=== PATIENT | female | born 1960 | race Caucasian/White ===

== ENCOUNTER 2019-06-07 00:56 | Day surgery (SDC) | payer MEDICARE, OTHER, SELFPAY ==
[2019-05-27 07:54] VITALS: BP 134/79; PULSE 80; RESP 18; TEMP 37.3; O2SAT 98; BMI 26.9
--- NOTE | 2019-06-03 08:06 | P.HP_ITS ---
H&P: HPI History of Present Illness Chief complaint: Uterine Prolapse Narrative: Aarti Jain is a 58 year old female Iris presents for robotic supracervical hysterectomy and bilateral salpingo- oophorectomy. She has known pelvic prolapse complains of pain bulging and discomfort good she will undergo sacral colpopexy with Dr. amezquita as well. She also has stress urinary incontinence. She has had a normal Pap. Risks and benefits reviewed. Review of Systems 2 Review of Systems: All systems reviewed & are unremarkable except as noted in HPI and below Meds Home Medications and Allergies Home Medications Medication Instructions Recorded Confirmed Type atorvastatin 20 mg PO DAILY 05/27/19 05/27/19 History cholecalciferol (vitamin D3) 4,000 unit PO DAILY 05/27/19 05/27/19 History interferon beta-1a (albumin) 44 mcg SUBCUT 3XW 05/27/19 05/27/19 History [Rebif Rebidose] lisinopril 40 mg PO DAILY 05/27/19 05/27/19 History metoprolol succinate 25 mg PO HS 05/27/19 05/27/19 History oxcarbazepine 600 mg PO TID 05/27/19 05/27/19 History oxybutynin chloride 15 mg PO DAILY 05/27/19 05/27/19 History Allergies Allergy/AdvReac Type Severity Reaction Status Date / Time No Known Allergies Allergy Verified 05/27/19 08:03 Exam Const: General: no acute distress Eyes: General: appearance normal, both eyes and all related structures Neck: Neck: supple and no JVD Thyroid: thyroid normal Resp: Effort & Inspection: normal respiratory effort Auscultation: clear to auscultation bilaterally Cardio: Rate: regular rate Rhythm: regular rhythm GI: Inspection: non-distended GI Palp: Yes Soft to palpation, No Tenderness to palpation present (GI) and No Guarding due to palpation present (GI) Auscultation: normal bowel sounds : External Female Exam: normal external appearance Speculum Exam - Vagina: Abnormal introitus ( Uterine prolapse is seen in the second-third degree time there is also a ) Skin: General skin exam: no rashes or lesions noted Extrem: General: normal to inspection and no edema Psych: Mental Status: mental status grossly normal Affect: normal affect Assessment and Plan Additional Plan Impression: Prolapse and stress urinary incontinence Plan: Robotic supracervical hysterectomy. I lateral salpingo-oophorectomy. Under blood will proceed with robotic sacrocolpopexy
[2019-06-07] VITALS (17 sets, daily range): BP systolic 111–159; BP diastolic 59–85; PULSE 66–92; RESP 9–18; TEMP 36.1–36.8; O2SAT 96–100
--- NOTE | 2019-06-07 06:49 | WPDHPUPDATE1 ---
History and Physical Update Update Date/Time: 06/07/19 06:49 History and Physical has been reviewed, including an updated exam of the patient. There are NO changes in the patient's condition. Risks, benefits, and alternatives have been discussed and questions answered. Patient agrees to proceed with procedure.
--- NOTE | 2019-06-07 07:06 | WPDANESEPPF ---
Anes - Initial Pre Proc Eval Procedure: Operation Date: 06/07/19 07:30 Proposed Procedures p Robotic Sacrocolpopexy, Possible Urethral Sling - Alireza May MD s Robotic Assisted Supracervical Hysterectomy, Bilateral Salpingo-Oophorectomy - Ike Araiza MD Date/Time: 06/07/19 07:06 Surgeon: Alireza May MD Pre Op Diagnosis: Uterine Prolapse Patient Data Age: 58 Gender: F Height: 5 ft Weight: 62.1 kg Last Vital Signs Temp 99.2 F 05/27/19 07:54 Pulse 80 05/27/19 07:54 Resp 18 05/27/19 07:54 BP 134/79 05/27/19 07:54 Pulse Ox 98 05/27/19 07:54 Allergies Allergy/AdvReac Type Severity Reaction Status Date / Time No Known Allergies Allergy Verified 06/07/19 06:31 Home Medications Medication Instructions Recorded Confirmed Type atorvastatin 20 mg PO DAILY 05/27/19 06/07/19 History cholecalciferol (vitamin D3) 4,000 unit PO DAILY 05/27/19 06/07/19 History interferon beta-1a (albumin) 44 mcg SUBCUT 3XW 05/27/19 06/07/19 History [Rebif Rebidose] lisinopril 40 mg PO DAILY 05/27/19 06/07/19 History metoprolol succinate 25 mg PO HS 05/27/19 06/07/19 History oxcarbazepine 600 mg PO TID 05/27/19 06/07/19 History oxybutynin chloride 15 mg PO DAILY 05/27/19 06/07/19 History Patient hx anesthesia problems: none Family hx anesthesia problems: none [facility] Past Medical History Medical History (Updated 06/07/19 @ 07:06 by Moody Erickson MD) Hyperlipidemia Hypertension Multiple sclerosis Anes - Eval Final PreProcedure Day of Procedure 06/07/19 07:06 Patient weight: normal Heart: regular rate and rhythm Lungs: clear to auscultation Airway: Mallampati scale class II Neurological: alert and oriented Last oral intake: >/= 8 hours ASA classification: III Emergent: no Anesthetic plan: proceed Anesthesia type and monitoring: general ETT and standard monitoring Informed Consent: The patient's anesthetic plan and its attendant risks and benefits were discussed with the patient/family/POA. Questions were solicited and answers provided to the satisfaction of the patient/family/POA.
[2019-06-07] MEDS: LACTATED RINGERS 1,000 ML 30 ML IV CONT ×2 (07:11→10:03)
--- NOTE | 2019-06-07 07:18 | WPDHPUPDATE1 ---
History and Physical Update Update Date/Time: 06/07/19 07:18 History and Physical has been reviewed, including an updated exam of the patient. There are NO changes in the patient's condition. Risks, benefits, and alternatives have been discussed and questions answered. Patient agrees to proceed with procedure.
[2019-06-07] MEDS: ceFAZolin 2 GM/D5W 50 ML 2 GM/50 ML BAG IVPB (07:34)
[2019-06-07] MEDS: BUPIVACAINE/EPINEPHRINE 0.25% 50 ML VIAL 10 ML INFILTRATE (07:50)
[2019-06-07] MEDS: metroNIDAZOLE 500 MG/ISO 100ML 500 MG/100 ML BAG 100 MG IVPB ×2 (07:51→16:00)
--- NOTE | 2019-06-07 08:28 | P.OP_ITS ---
Procedure Note - Detailed Date of procedure: 06/07/19 Pre-op diagnosis: Uterine Prolapse Surgeon: Ike Araiza MD Postop diagnosis: Uterine prolapse EBL: 5cc Anesthesia: General endotracheal Findings: Prolapsed uterus: Normal appearing adnexa, adhesions from the colon to the right lateral sidewall Complications: None Description of procedure: The patient was prepped and draped in the normal sterile fashion and placed in the dorsal lithotomy position. Under excellent general endotracheal anesthesia weighted speculum placed post formed vagina. The anterior lip of the cervix grasped with a single-tooth tenaculum. The Wright's cannula inserted to the cervix and attached to be used later for uterine manipulation. A 16 [place] catheter was then placed in the bladder and drained of clear urine. I un scrubbed at that point. Dr. May proceeded to place the port and docked the robot. Please see his operative report for details of that. Once the robot was docked attended the console. The left round ligament was grasped, burned, cut anteriorly a bladder flap was formed by sharply disse cting the bladder caudally from the uterus and cervix. This was taken to the opposite round ligament which was clamped, burned, cut. Next the left infundibulopelvic structure was skeletonized to remove the left ovary and tube. This was serially clamped, cut, and burned and brought to the level of the previously cut round ligament. In like fashion the right ovary and tube removed by clamping burning and cutting infundibulopelvic structure on the right. The cardinal and broad ligaments on the left were serially skeletonized clamped, burned, cut and brought down the lateral edge of the uterus until the uterine vessels could be seen. These were individually clamped, burned, and cut in like fashion the cardinal and broad ligaments on the right were serially skeletonized, clamped, burned, cut brought down to the level of of the uterine vessels these were individually clamped, burned, cut. Then the supracervical incision was made. The cervix uterus and to the cervix remained the uterus ovaries and tubes were placed in an Endo-Catch. Blood loss to the point was 5cc Dr. May joined at that point there were no complications up to this point
--- NOTE | 2019-06-07 08:35 | SUR.OPER ---
Y MESH TO FIELD UPSYLON SEE DOCUMENTATION FOR MESH.
--- NOTE | 2019-06-07 09:44 | SUR.OPER ---
ebl 15ml u/a 175 clear yellow u/a
--- NOTE | 2019-06-07 09:45 | PM.PROC ---
Procedure Note - Detailed Date of procedure: 06/07/19 Pre-op diagnosis: Uterine Prolapse Uterine prolapse Post-op diagnosis: same Procedure performed: Robotic assisted laparoscopic sacral colpopexy Cystoscopy Description of procedure: She understood the risks of bleeding, infection, damage to surrounding organs, bowel injury, bowel obstruction, recurrence of prolapse, stress incontinence, mesh related complications including exposure and extrusion, diskitis, postoperative voiding dysfunction including incontinence and retention, hip and leg pain, dyspareunia, and she agrees to proceed. She was correctly identified and informed consent was obtained. She was brought to the operating room. She was given general anesthesia. She was placed in the dorsal lithotomy position. All pressure points were padded. She was given appropriate perioperative antibiotics. Time-out performed. I anesthetized the skin 3 fingerbreadths cephalad to the umbilicus. I incised the skin. I dissected down to locate the fascia. I grasped the fascia with Jamin clamps. I entered the fascia sharply. I placed Vicryl sutures for later fascial closure. I placed a midline trocar. Under direct vision 2 additional trocars were placed on the right and left upper quadrant. She was placed in steep Trendelenburg and the robot was docked. Her show host or hostess performed the portion of the procedure and left the specimen and a sac which was extracted. I then sat at the console. With the Sizer in the vagina I created a plane on the anterior and posterior vaginal wall. This was done for several cm taking great care not to injure the vagina, bladder, or rectum. I introduced the mesh into the abdomen. I sewed the anterior leaflet of mesh on the anterior vaginal wall and posterior leaf of the mesh on the posterior vaginal wall with several [place] sutures taking great care not to go through and through. I then reflected the colon laterally. I opened up the posterior peritoneum over the sacral promontory. I carried this into the cul-de-sac. I kept the ureters lateral. I freed up the edges. I located the anterior longitudinal ligament of the sacrum. I tensioned the mesh appropriately. I did a vaginal exam to ensure prolapse reduction without undue tension. I then sewed the proximal leaflet of mesh onto the ligament with 3 sutures of 2 0 [place]-Tate. Next the mass was meticulously retroperitonealized with a running 2 0 Monocryl suture. I allowed the colon to go back into its normal anatomic location. There is no signs of any impingement or stricturing. The abdomen was exited. Fascia was closed. Skin was closed with Monocryl and glue. I then performed cystoscopy. The bladder is examined. There was no tumors, stones, foreign bodies, surgical artifact. Both ureters were seen to excrete clear yellow urine. There is no surgical artifact in the urethra. Catheter was then replaced. She was awakened and transferred to the PACU in stable condition. Anesthesia: GLMA Surgeon: Alireza May MD Drains: Yes (Bhatti catheter) Packing: Yes Complications: No immediate complications Condition: stable Disposition: PACU
--- NOTE | 2019-06-07 10:51 | SUR.PHASEI ---
[id number]-REPORT FAXED TO FLOOR, ADMITTING NOTIFIED OF OPER ADMIT, NOTIFIED WITH UPDATE VIA WAITING FACTORY MANAGER.
[2019-06-07] MEDS: MORPHINE SULFATE 2 MG/ML INJ IV PUSH (13:02)
[2019-06-07] MEDS: KCL 20 MEQ/D5/0.45% SOD CHL 1,000 ML 100 ML IV CONT (13:03)
--- NOTE | 2019-06-07 13:24 | PC.NURSE ---
1132: Pt. admitted from PACU in hospital bed. Respirations even and unlabored. Oriented to room and call light system. Very pleasant and cooperative. at side. Resting quietly.
--- NOTE | 2019-06-07 14:03 | PHAR ---
The patient's home med of Oxcarbazepine 600mg has been verified. LARGE YELLOW PILL WITH MARKINGS 13 9 G
[2019-06-07] MEDS: METOPROLOL SUCCINATE EXT REL 25 MG TABCR PO (22:03)
[2019-06-08 00:30] VITALS: BP 148/74; PULSE 80; RESP 16; TEMP 36.8; O2SAT 97
[2019-06-08] MEDS: metroNIDAZOLE 500 MG/ISO 100ML 500 MG/100 ML BAG 100 MG IVPB ×2 (00:40→10:09)
[2019-06-08] MEDS: KCL 20 MEQ/D5/0.45% SOD CHL 1,000 ML 100 ML IV CONT (00:49)
[2019-06-08] MEDS: ACETAMINOPHEN 325 MG TABLET 650 MG PO (01:47)
[2019-06-08 05:00] VITALS: BP 165/92; PULSE 100; RESP 18; TEMP 36.9; O2SAT 97
[2019-06-08] MEDS: ONDANSETRON INJ 4 MG/2 ML VIAL IV PUSH (05:25)
--- NOTE | 2019-06-08 06:50 | PM.DS ---
DS: Diagnosis Admitting Diagnosis Admitting Diagnosis: Uterovaginal prolapse, unspecified DS: Summary Time Spent with Patient Time attestation: Total time spent providing and/or coordinating discharge services: Exam Const: General: no acute distress Eyes: General: appearance normal, both eyes and all related structures Neck: Neck: supple and no JVD Thyroid: thyroid normal Resp: Effort & Inspection: normal respiratory effort Auscultation: clear to auscultation bilaterally Cardio: Rate: regular rate Rhythm: regular rhythm GI: Inspection: non-distended GI Palp: Yes Soft to palpation, No Tenderness to palpation present (GI) and No Guarding due to palpation present (GI) Auscultation: normal bowel sounds : General: Yes bladder normal to palpation External Female Exam: normal external appearance Speculum Exam - Vagina: normal vaginal discharge and No vaginal bleeding Speculum Exam - Cervix: nontender Bimanual exam- vagina & uterus: bladder normal to palpation and No Cervical tenderness present OB/external & speculum: No vaginal bleeding Skin: General skin exam: no rashes or lesions noted Extrem: General: normal to inspection and no edema Psych: Mental Status: mental status grossly normal Affect: normal affect DS: Data Data Completed and Pending Pending studies at discharge: Pending at discharge 06/07/19 08:19 Surgical [PTH] Routine Discharge Plan Discharge Attending physician on discharge: Ike Araiza Discharging Clinician: Ike Araiza Patient Disposition: Home, Self-Care Discharge Instructions: No lifting >20lb, exercise for 6 weeks No tub bath or pool for 2 weeks Follow-up/Referrals: Alireza May MD [Physician] - 6 Weeks Ike Araiza MD [Physician] - Discharge Medications: New tramadol 50 mg tablet 50 mg PO Q6H PRN (Reason: pain) Qty: 30 RF: 0 docusate sodium [Colace] 100 mg capsule 100 mg PO BID Qty: 60 RF: 0 Continued oxybutynin chloride 15 mg Tablet Extended Release 24hr 15 mg PO DAILY RF: 0 atorvastatin 20 mg Tablet 20 mg PO DAILY RF: 0 oxcarbazepine 600 mg Tablet 600 mg PO TID RF: 0 metoprolol succinate 25 mg Tablet Extended Release 24 Hr 25 mg PO HS RF: 0 lisinopril 40 mg Tablet 40 mg PO DAILY RF: 0 cholecalciferol (vitamin D3) 2,000 unit Tablet 4,000 unit PO DAILY RF: 0 Rebif Rebidose 44 mcg/0.5 mL Pen Injector 44 mcg SUBCUT 3XW RF: 0 Primary Care Provider: Valorie,Marisabel Miller Attending physician on admission: Alireza May
--- NOTE | 2019-06-08 06:51 | PM.OBPNVD ---
OB - PN: Subj Subjective Date/time seen: 06/08/19 06:51 Patient comments: pain well controlled and other (ms sxs but ok postop) OB - PN A/P Plan day: 1 Plan: routine care, discharge home and follow up 6 weeks (2 weeks) Time Spent With Patient Time: Total time spent is greater than 50% in coordination of care (as documented) at patient's floor/unit and/or counseling patient: Time with patient: less than 15 minutes Review of Systems Review of Systems: All systems reviewed & are unremarkable except as noted in HPI and below Exam Const: General: no acute distress Eyes: General: appearance normal, both eyes and all related structures Neck: Neck: supple and no JVD Thyroid: thyroid normal Resp: Effort & Inspection: normal respiratory effort Auscultation: clear to auscultation bilaterally Cardio: Rate: regular rate Rhythm: regular rhythm GI: Inspection: normal to inspection and incision (cdi) : General: Yes bladder normal to palpation External Female Exam: normal external appearance Speculum Exam - Vagina: normal vaginal discharge and No vaginal bleeding Speculum Exam - Cervix: nontender Bimanual exam- vagina & uterus: bladder normal to palpation and No Cervical tenderness present OB/external & speculum: No vaginal bleeding Skin: General skin exam: no rashes or lesions noted Extrem: General: normal to inspection and no edema Psych: Mental Status: mental status grossly normal Affect: normal affect
--- NOTE | 2019-06-08 07:16 | PC.NURSE ---
Pt has had 3 episodes in which her MS has flared up through the night. First episode occurred around 0105 and lasted approximately 30-40 minutes in which pt was extremely anxious, upset, and left side was shaking. Pt requested that she be packed with ice bags to help ease the flare until it passed each time. The second episode occurred around 0400 and lasted approx 20 minutes, and the third occurance was around 0610 and lasted approx 15 minutes. Pt received her home MS medication at 2200 on 06-07-2019 per request and verification from pharmacy. Pt did request to take her 0600 dose early when she started having another episode around 0400 and this was given early per pt request.
[2019-06-08 08:00] VITALS: BP 133/75; PULSE 93; RESP 16; TEMP 37.1; O2SAT 96
--- NOTE | 2019-06-08 08:04 | WPDANESPN ---
Anes - Prog Note Post-Op Date/Time: 06/08/19 08:04 Cardiovascular status: normal Respiratory status: normal Airway patency: baseline Mental status: baseline Post-Op hydration status: normal Vital Signs: Last Vital Signs Temp 98.4 F 06/08/19 05:00 Pulse 100 06/08/19 05:00 Resp 18 06/08/19 05:00 BP 165/92 H 06/08/19 05:00 Pulse Ox 97 06/08/19 05:00 I/O: Intake & Output 06/07/19 06/08/19 06/08/19 23:59 07:59 15:59 Intake Total 1400 600 Output Total 200 1225 Balance 1200 -625 Post-procedural complaints: other (TINGLING AND DISCOMFORT AND COMPLICATIONS WITH MS) Patient Feedback: Patient satisfied with anesthetic care.
[2019-06-08] MEDS: ATORVASTATIN 20 MG TABLET PO (09:27)
[2019-06-08] MEDS: CHOLECALCIFEROL 1,000 UNIT TABLET 4000 UNITS PO (09:29)
[2019-06-08] MEDS: DOCUSATE SODIUM 100 MG CAPSULE PO (09:30)
[2019-06-08] MEDS: lisinopriL 20 MG TABLET 40 MG PO (09:31)
[2019-06-08] MEDS: ENOXAPARIN 30 MG/0.3 ML SYRINGE SUB-Q (09:33)
[2019-06-08] MEDS: CEPHALEXIN 500 MG CAPSULE PO (13:13)
--- NOTE | 2019-06-08 15:23 | PC.NURSE ---
Pt D/C time should be 1325 not 1225 like charted on Discharge.
== END 2019-06-08 12:25 | disposition home or self-care (01) ==
LOC: ANHSURGERY 06:09 → ANHOB2 11:33
PROVIDERS: Obstetrics & Gynecology; PCP Family Medicine; Visit Provider Urology
PROC: (CPT 57425; principal; 2019-06-07 07:30)
PROC: 0UT94ZZ Resection of Uterus, Percutaneous Endoscopic Approach (ICD-10-PCS; CPT 57425; 2019-06-07 07:30)
DX: N81.4 Uterovaginal prolapse, unspecified (principal); N73.6 Female pelvic peritoneal adhesions (postinfective); N84.0 Polyp of corpus uteri; D25.9 Leiomyoma of uterus, unspecified; N83.292 Other ovarian cyst, left side; I10 Essential (primary) hypertension; G35 Multiple sclerosis; E78.5 Hyperlipidemia, unspecified
CPT/HCPCS: 57425; 58542; S2900; 88307; 99199; A9270; C1781; J0131; J0690; J1100; J1170; J1650; J2250; J2270; J2405; J2704; J2710; J3010; J3480; J7030; J7120